=== PATIENT | female | born 1965 | race Caucasian/White ===

== ENCOUNTER 2016-11-30 10:10 | Emergency (ER) | payer OTHER ==
[~2016-11-30] VITALS: Ht 172.7 cm; Wt 77.3 kg
[2016-11-30 10:16] VITALS: BP 110/69; PULSE 98; RESP 16; O2SAT 100
--- NOTE | 2016-11-30 10:29 | ED.REPORT ---
HPI-Neurologic Deficit Date of Service Nov 30, 2016 ED Provider: Caden Hall DO Patient is a 51 year old female with a history of anemia, gastric bypass and Crohn's disease who presents to the ED complaining of numbness of the left side of her face for the past 3 days. Associated symptoms include numbness and a weighted feeling that radiates into her left arm and finger and intermittent left sided chest discomfort that she states is not a pain but feels like a weight. The patient reports that she is anxious because she is concerned that these are stroke symptoms. She states that yesterday she had an episode of dizziness and blurred vision, which has since resolved. Patient also states that she had mildly slurred speech this morning but states that if her other symptoms were not present, it would not have concerned her. The patient has not experienced these symptoms before, it does not feel like GERD and has not had any recent illness. She denies vomiting or fever. Prior to arrival to the ED the patient took ASA. Nursing Notes Stated Complaint: CHEST PAIN,LT ARM NUMBNESS,FACE NUMBNESS,SOB Chief Complaint: Neuro Symptoms/ Deficits Nursing Notes Reviewed: Yes Allergies: Coded Allergies: No Known Allergies (Unverified , 11/30/16) General Time Seen by Provider: 10:31 Chief Complaint Numbness arm... (Left) Hx Obtained From: Patient Arrived By: Walk-in Sudden in Onset?: Yes Onset Occurred: 3 days ago Symptom Duration: Since onset Progression Since Onset: Unchanged Pertinent Negative: Exacerbated by nothing Recent Healthcare: No recent doctor visit, No recent hospitalization Similar Sx Previous: No Risk Factors NIH Stroke Scale Level of Consciousness: Alert and responsive (0) Ask Month & Age: Both questions right (0) Open/Close Eyes/Hand Bench Technician: Performs both tasks (0) Horizontal EO Movements: None (0) Visual Del Cid: No visual loss (0) Facial Palsy: Normal symmetry (0) Right Arm Motor Drift (10s): No drift 10 sec (0) Left Arm Motor Drift (10s): No drift 10 sec (0) Right Leg Motor Drift (5s): No drift 5 sec (0) Left Leg Motor Drift (5s): No drift 5 sec (0) Limb Ataxia FNF/Heel-Duran: No ataxia (0) Sensation (Arms/Legs/Face): No sensory loss (0) Language Aphasia: No aphasia, normal (0) Dysarthria: No dysarthria, normal (0) Extinction/Inattention: No exctinct/inattent (0) NIHSS Score: 0 Time NIHSS Performed: 10:43 Date NIHSS Performed: Nov 30, 2016 Past Medical History Past Medical History anemia Crohn's Past Surgical History gastric bypass Social History Alcohol Use: Denies alcohol use Drug Use: Denies drug use Ambulatory Status Independent Physical Exam Initial Vital Signs Vital Signs (First) Date Time Temp Pulse Resp B/P Pulse Ox O2 Delivery O2 Flow Rate FiO2 11/30/16 10:16 36.4 98 16 110/69 100 Room Air Initial VS: Reviewed General/Constitutional: Awake, Alert Behavior: Positive: Anxious Head / Eyes: Atraumatic, Normocephalic, PERRL, EOMI Respiratory / Chest: Atraumatic, Breath sounds NL, Breath sounds = bilat, No respiratory distress Cardiovascular: Heart rate NL, Regular rhythm, Heart sounds NL Neurologic: Oriented X3, Speech NL, No motor deficits, No sensory deficits Abdomen: Atraumatic, Soft, Non-tender Skin: Atraumatic, Color NL, No rash, Warm, Dry Psychiatric: Affect NL, Mood NL Interpretation & Diagnostics Lab Results Interpretation Result Diagram: 11/30/16 1108 11/30/16 1219 Test 11/30/16 11:08 11/30/16 12:19 White Blood Count 6.4th/mm3 (3.8-10.1) Red Blood Count 4.37mil/mm3 (3.90-5.20) Hemoglobin 10.9g/dL (12.0-15.6) Hematocrit 35.5% (35.0-46.0) Mean Corpuscular Volume 81.2fL (81-100) Mean Corpuscular Hemoglobin 24.9pg (27.0-35.0) Mean Corpuscular Hemoglobin Concent 30.7% (32.0-37.0) Red Cell Distribution Width 15.6% (12.3-15.4) Platelet Count 361bil/L (150-400) Neutrophils (%) (Auto) 51.9% (40-74) Lymphocytes (%) (Auto) 32.1% (14-46) Monocytes (%) (Auto) 12.3% (4-12) Eosinophils (%) (Auto) 2.6% (0-5) Basophils (%) (Auto) 0.9% (0-3) Sodium Level 139mEq/L (134-144) Potassium Level 4.8mEq/L (3.5-5.2) Chloride Level 102mEq/L (97-108) Carbon Dioxide Level 24mmol/L (18-29) Blood Urea Nitrogen 17mg/dL (6-24) Creatinine 0.57mg/dL (0.57-1.00) Estimat Glomerular Filtration Rate 161mL/min (>59) Glucose Level 108mg/dL (60-99) Calcium Level 9.0mg/dL (8.5-10.1) Total Bilirubin 0.2mg/dL (0.0-1.2) Aspartate Amino Transf (AST/SGOT) 11U/L (0-50) Alanine Aminotransferase (ALT/SGPT) 7U/L (0-32) Alkaline Phosphatase 66U/L (25-150) Troponin T < 0.010ug/L (0.0-0.011) Total Protein 6.8g/dL (6.4-8.4) Albumin 3.7g/dL (3.4-5.0) ECG Interpretation Time: 10:51 Interpreted by: ED physician Normal ECG Interpretation: Normal rate (80), Normal sinus rhythm X-Ray Chest Interpretation Chest Xray Interpretation: IMPRESSION: No acute pulmonary process. Dictated by: Jeanette Montemayor M.D. on 11/30/2016 at 11:34 Approved by: Jeanette Montemayor M.D. on 11/30/2016 at 11:35 View: Portable, 1 view Interpretation / Wet Read by: Interpret - Radiologist CT Head Interpretation IMPRESSION: 1. No acute intracranial abnormalities. Dictated by: Maryann Harding M.D. on 11/30/2016 at 11:17 Approved by: Maryann Harding M.D. on 11/30/2016 at 11:19 Interpretation / Wet Read by: Interpret - Radiologist Re-Eval/Medical Decision Med Decision/Clinical Course After 3 days of constant symptoms, there is no evidence of stroke on CAT scan and no abnormalities to EKG troponin or chest x-ray. The patient's symptoms are rather mild, she has no reproducible symptoms on neurologic exam. Her NIH stroke scale is 0. In terms of her chest discomfort, she is low risk with reassuring EKG and troponin. Her heart rate in oxygen level are normal she does not complain of shortness of breath and does not seem to have any risk factors for PE. This diagnosis seems unlikely. I discussed with the patient and did offer admission for inpatient MRI and further observation. The patient declined this in lieu of outpatient follow-up with her primary care doctor. Return and follow-up precautions given. Re-Evaluation/Progress #1: Time of Eval: 11:37 Re-Evaluation/Progress Note: Discussed CT scan results and EKG. Patient reports that she still has a weighted feeling and numbness in her arm. Re-Evaluation/Progress #2: Time of Eval: 13:34 Patient Status: Condition improved Re-Evaluation/Progress Note: Discussed labs and plan for discharge. The patient understands and agrees to the plan. All questions were addressed. Differential Diagnosis: Positive: Cerebrovascular accident, Electrolyte disorder, Epidural hemorrhage, Hypoglycemia, Intracranial hemorrhage, Mass lesion, Meningitis, Subarachnoid hemorrhage, Subdural hemorrhage, Transient ischemic attack ACS, Angina Counseled Regarding: Diagnosis, Lab results, Need for follow-up, When/why to return to ED Discharge & Departure Impression: Primary Impression: Paresthesia Additional Impression: Chest discomfort Disposition: Home Discharge Condition All VS Reviewed: Yes Condition: Stable Additional Instructions: Your labs, EKG, CT and X-ray were all normal and reassuring. It does not look like you had a heart attack or stroke. It is still unclear what is causing your numbness and chest discomfort. Follow up with your primary care physician this week for further evaluation including an MRI and stress test. Return to the emergency department if you develop any new or concerning symptoms. Crit Care Except Billable Proc Time Spent: 30-74 minutes Services Performed: Patient management by me, Time spent at bedside, Reviewing test results Critical Care Notes: See [facility] Scribe Attestation Portions of this note were transcribed by Conchita Salazar. I, Dr. Melissa Reid personally performed the history, physical exam and medical decision-making; I reviewed and confirmed the accuracy of the information in the transcribed note. Signed by: Walter Bush, 11/30/16 and 1225 Caden Kitchen DO Nov 30, 2016 10:29 Myrna Salazar Nov 30, 2016 10:42
[2016-11-30] MEDS ORDERED: 0.9% Sodium Chloride 1,000 ML IV ONE (10:43)
[2016-11-30 11:18] LABS: BASOPHILS % (AUTO) 0.9 % (0-3); EOSINOPHILS % (AUTO) 2.6 % (0-5); MONOCYTES % (AUTO) 12.3 % (4-12); Mean Corpuscular Hemoglobin 24.9 pg (27.0-35.0); Mean Corpuscular Volume 81.2 fL (81-100); NEUTROPHILS % (AUTO) 51.9 % (40-74); Platelet Count 361 bil/L (150-400)
--- NOTE | 2016-11-30 11:21 | DRSVH ---
PROCEDURE: CT BRAIN WITHOUT CONTRAST ([id number]) INDICATIONS: Stroke TECHNIQUE: Noncontrast 4.5 mm thick angled axial sections acquired from the foramen magnum to the vertex, with c oronal reformats. COMPARISON: None. FINDINGS: Image quality: Excellent. CSF spaces: Basal cisterns are patent. No extra-axial fluid collections. Ventricles are normal in size and shape. Brain: No midline shift. No intracranial masses or hemorrhage. Howard-white matter interface is norm al. Skull and face: Calvarium and visualized facial bones are intact, without suspicious lesions. Sinuses: Visualized sinuses and mastoids are clear. IMPRESSION: 1. No acute intracranial abnormalities. Dictated by: Maryann Harding M.D. on 11/30/2016 at 11:17 Approved by: Maryann Harding M.D. on 11/30/2016 at 11:19
--- NOTE | 2016-11-30 11:36 | DRSVH ---
PROCEDURE: X-RAY CHEST ONE VIEW, PORTABLE ([id number]) INDICATIONS: chest pain TECHNIQUE: One view of the chest was acquired. COMPARISON: None. FINDINGS: Surgical changes and devices: None. Lungs and pleura: No pleural effusions or pneumothorax. Lungs are clear. Mediastinum: Mediastinal contours appear normal. Heart size is normal. Bones and chest wall: No suspicious bony lesions. Overlying soft tissues appear unremarkable. IMPRESSION: No acute pulmonary process. Dictated by: Jeanette Montemayor M.D. on 11/30/2016 at 11:34 Approved by: Jeanette Montemayor M.D. on 11/30/2016 at 11:35
[2016-11-30] MEDS ORDERED: LidocaineVisc 2%:Antacid 1:1 10 mL Syringe PO ONE (11:45)
[2016-11-30 11:52] VITALS: BP 100/49; PULSE 67; RESP 13; O2SAT 100
--- NOTE | 2016-11-30 11:52 | NUR ---
Evaluation completed. Please go to "Notes" then click on "Assessments and Notes" (bottom left corner of screen). Then select appropriate discipline tab on top of screen.
[2016-11-30 13:24] LABS: TROPONIN T < 0.010 ug/L (0.0-0.011)
[2016-11-30 14:05] VITALS: BP 108/45; PULSE 78; RESP 20; O2SAT 100
== END 2016-11-30 14:09 | disposition home or self-care (01) ==
LOC: SED 10:10
DX: R20.9 Unspecified disturbances of skin sensation (principal); R07.89 Other chest pain
CPT/HCPCS: 36415; 70450; 71010; 80053; 84484; 85025; 92610; 93005; 96360; 99291; J7030